=== PATIENT | female | born 1955 | race Caucasian/White ===

== ENCOUNTER → 2020-08-15 | Outpatient (CLI) | payer OTHER ==
--- NOTE | 2020-08-18 14:03 | RAD ---
DATE: 08/15/2020 3:31 PM EXAM: MAMMO MARIE SCREENING BILATERAL HISTORY: Screening COMPARISON: None currently available. This can serve as a new baseline. Bilateral CC and MLO views of the breasts were performed. Bilateral breast tomosynthesis was performed in CC and MLO projections. This study was interpreted with the benefit of Computerized Aided Detection (CAD). FINDINGS: Breast Density: FATTY The Breast Parenchyma is primarily fatty replaced. Breast parenchyma level density A. No suspicious masses, microcalcifications or architectural distortion is present to suggest malignancy in either breast. The visualized axillae are unremarkable. IMPRESSION: No mammographic evidence of malignancy. BI-RADS CATEGORY: 1 NEGATIVE RECOMMENDED FOLLOW-UP: 12M 12 MONTH FOLLOW-UP Annual screening mammography is recommended, unless clinically indicated sooner based on symptoms or change in physical exam. PQRS compliance statement: Patient information was entered into a reminder system with a target due date for the next mammogram. Mammography is a sensitive method for finding small breast cancers, but it does not detect them all and is not a substitute for careful clinical examination. A negative mammogram does not negate a clinically suspicious finding and should not result in delay in biopsying a clinically suspicious abnormality. "Our facility is accredited by the [employer] Mammography Program."
== END ==
LOC: MAMMO 15:08
PROVIDERS: ATTEND Family Medicine
DX: Z12.31 Encounter for screening mammogram for malignant neoplasm of breast (principal)
CPT/HCPCS: 77063; 77067

== ENCOUNTER → 2021-09-13 | Outpatient (CLI) | payer OTHER ==
--- NOTE | 2021-09-13 12:37 | RAD ---
BILATERAL DIGITAL SCREENING 2-D AND 3-D MAMMOGRAM INDICATION: Routine screening. COMPARISON: August 15, 2020 Interpretation was made using CAD. FINDINGS: Breast Density: The breasts are almost entirely fatty. RIGHT BREAST: No suspicious masses, calcifications or areas of architectural distortion are seen. LEFT BREAST: In the upper outer breast near the 2:00 location, 10 cm from the nipple there is a clust er of calcifications. Additional imaging is recommended. IMPRESSION: 1. Indeterminate left breast calcifications. Additional spot magnification and true lateral views ar e recommended. 2. Stable right mammogram with no imaging evidence of malignancy. ASSESSMENT: BI-RADS 0. Incomplete Assessment. Needs additional imaging evaluation. RECOMMENDATION: Diagnostic left mammogram The facility will notify the patient of the results via mail. Patient information will be entered int o the mammography reminder system with a target recall date for the next mammogram. Patient information was entered into a reminder system with a target due date for the next mammogram. A reminder letter will be generated by the facility. Electronically signed by: Tawny Gavin MD (09/13/2021 12:34 PM) [id number]
== END ==
LOC: MAMMO 11:09
PROVIDERS: ATTEND Family Medicine
DX: Z12.31 Encounter for screening mammogram for malignant neoplasm of breast (principal)
CPT/HCPCS: 77063; 77067

== ENCOUNTER → 2021-09-27 | Outpatient (CLI) | payer OTHER ==
--- NOTE | 2021-09-27 16:24 | RAD ---
DIAGNOSTIC LEFT BREAST MAMMOGRAM TECHNIQUE: 2-D digital mammography with full field medial lateral view and spot magnification CC and MLO views. INDICATION: Callback for left breast calcifications. COMPARISON: 08/15/2020. FINDINGS: Breast Density: Category A: The breasts are predominantly fatty. Spot magnification views redemonstrated a small group of coarse heterogeneous calcifications in the l eft outer breast middle third which are new from prior year. No suspicious masses or architectural di stortion. IMPRESSION: 1. New small group of coarse heterogeneous calcifications in the left outer breast middle third. ASSESSMENT: BI-RADS 4: Suspicious for Malignancy. RECOMMENDATION: Stereotactic biopsy left outer breast calcifications. The patient impression and recommendation were described to the patient by the validation technician . The patient will be scheduled for stereotactic biopsy after in order is obtained. The facility will notify the patient of the results via mail. Patient information will be entered int o the mammography reminder system with a target recall date for the next mammogram. A reminder letter will be generated by the facility. Electronically signed by: Salvador Baker MD (09/27/2021 4:21 PM) [id number]
== END ==
LOC: MAMMO 14:42
PROVIDERS: ATTEND Family Medicine
DX: R92.1 Mammographic calcification found on diagnostic imaging of breast (principal)
CPT/HCPCS: 77065